=== PATIENT | female | born 1995 | race Caucasian/White ===

== ENCOUNTER 2018-06-02 02:49 | Inpatient (IN) | payer OTHER ==
[2018-06-02] MEDS ORDERED: Lidocaine 1% 50 ML MDV INJECT ONE (03:20)
[2018-06-02] MEDS ORDERED: Sodium Chloride 0.9% 10 ML Syringe FLUSH PRN (03:20)
[2018-06-02] MEDS ORDERED: Nalbuphine 20 MG/ML 1 ML Syringe IVPUSH PRN (03:20)
[2018-06-02] MEDS ORDERED: Ondansetron 4 MG/2 ML SDV IVPUSH PRN ×2 (03:20→04:41)
[2018-06-02] MEDS ORDERED: Oxytocin/Lactated Ringers 10 UNIT/1,000 ML BAG IV SCH (03:30)
--- NOTE | 2018-06-02 04:15 | PCM.LDHP ---
L&D History of Present Illness - General Date of Service: 06/02/18 Admit Problem/Dx: Patient Status Order with Admit Dx/Problem 06/02/18 03:20 Patient Status [ADT] Routine Admission Diagnosis/Problem Admission Diagnosis/Problem Normal labor Source of Information: Patient History Limitations: Reports: No Limitations - History of Present Illness Introduction:: Patient is a 22 y/o at 40 1/7 wks who presents in labor. Contractions started a little before midnight. No LOF. No other concerns. - Related Data Allergies/Adverse Reactions: Allergies Allergy/AdvReac Type Severity Reaction Status Date / Time No Known Allergies Allergy Verified 04/13/15 00:23 Home Medications: Home Meds Vit 90/Iron Fum/Folic [ Formula] 1 tab PO DAILY 04/13/15 [ History] Benzocaine/Menthol [Dermoplast Pain Relief [place]] 1 applic TOP ASDIRECTED PRN # 30 canister 04/14/15 [Rx] Docusate Sodium [Colace] 100 mg PO BID PRN #30 cap 04/14/15 [Rx] Ibuprofen [Motrin] 600 mg PO Q4H PRN #30 tablet 04/14/15 [Rx] Lanolin [Lansinoh HPA] 1 applic TOP ASDIRECTED PRN #30 crm 04/14/15 [Rx] Witch Kayli [Tucks] 1 pad TOP ASDIRECTED PRN #30 pad 04/14/15 [Rx] Past Medical History 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: , Spontaneous : 4 Para: 1 LMP (Approximate): - Past Surgical History HEENT Surgical History: Reports: Oral Surgery Other HEENT Surgeries/Procedures: wisdom teeth extraction Oncologic Surgical History: Reports: Other (See Below) Other Oncologic Surgeries/Procedures: lymph node removal Social & Family History - Tobacco Use Smoking Status *Q: Never Smoker - Alcohol Use Alcohol Use History: No - Recreational Drug Use Recreational Drug Use: No H&P Review of Systems - Review of Systems: Review Of Systems: See Below General: Reports: No Symptoms Pulmonary: Reports: No Symptoms Cardiovascular: Reports: No Symptoms Gastrointestinal: Reports: No Symptoms Genitourinary: Reports: No Symptoms Musculoskeletal: Reports: No Symptoms Psychiatric: Reports: No Symptoms Neurological: Reports: No Symptoms L&D Exam - Exam Exam: See Below - OB Specific Contraction Intensity: Moderate to Strong Movement: Active Heart Tones: Present Heart Tones per Min: 130 Heart Rate (FHR) Variability: Moderate (6-25 bmp) Presentation: Vertex - Waite Score Waite Score Cervix Position: Anterior Waite Score Consistency: Soft Waite Score Effacement: >80% Waite Score Dilation: > 5 cm Waite Score 's Station: -1 ,0 Waite Score Total: 12 - Exam General: Alert, Oriented, Cooperative Lungs: Clear to Auscultation, Normal Respiratory Effort Cardiovascular: Regular Rate, Regular Rhythm GI/Abdominal Exam: Soft, Non-Tender Genitourinary: Normal external exam Extremities: Normal Inspection Skin: Warm, Dry, Intact - Patient Data Lab Results Last 24 hrs: Laboratory Results - last 24 hr 06/02/18 Range/Units 03:40 WBC 16.76 H (3.98-10.04) K/mm3 RBC 4.30 (3.98-5.22) M/mm3 Hgb 12.8 (11.2-15.7) gm/L Hct 38.3 (34.1-44.9) % MCV 89.1 (79.4-94.8) fl MCH 29.8 (25.6-32.2) pg MCHC 33.4 (32.2-35.5) g/dl RDW Std Deviation 45.3 (36.4-46.3) fL Plt Count 234 (182-369) K/mm3 MPV 11.0 (9.4-12.3) fl Result Diagrams: 06/02/18 03:40 - Problem List (1) 40 weeks gestation of SNOMED Code(s): 84355269 ICD Code: Z3A.40 - 40 WEEKS GESTATION OF Status: Acute Current Visit: Yes (2) Normal labor SNOMED Code(s): 91591212 ICD Code: O80 - ENCOUNTER FOR FULL-TERM UNCOMPLICATED DELIVERY; Z37.9 - OUTCOME OF DELIVERY, UNSPECIFIED Status: Acute Current Visit: Yes Problem List Initiated/Reviewed/Updated: Yes Orders Last 24hrs: Active Orders 24 hr Category Date Time Status Patient Status [ADT] Routine ADT 06/02/18 03:20 Active Activity as Tolerated [RC] PFP Care 06/02/18 03:20 Active Communication Order [RC] ASDIRECTED Care 06/02/18 03:20 Active Heart Tones [RC] ASDIRECTED Care 06/02/18 03:21 Active Non Stress Test [RC] PER UNIT ROUTINE Care 06/02/18 03:20 Active Notify Provider [RC] PFP Care 06/02/18 03:20 Active Notify Provider [RC] PRN Care 06/02/18 03:20 Active Peripheral IV Care [RC] . DIRECTED Care 06/02/18 03:21 Active Vital Signs [RC] PER UNIT ROUTINE Care 06/02/18 03:20 Active Regular Diet [DIET] Diet 06/02/18 Breakfast Active RAPID PLASMA REAGIN,RPR [CHEM] Routine Lab 06/02/18 03:40 Received TYPE AND SCREEN [BBK] Stat Lab 06/02/18 03:40 Received Lactated Ringers [Ringers, Lactated] 1,000 ml Med 06/02/18 03:30 Active IV ASDIRECTED Nalbuphine [Nubain] Med 06/02/18 03:20 Active 10 mg IVPUSH Q2H PRN Ondansetron [Zofran] Med 06/02/18 03:20 Active 4 mg IVPUSH Q4H PRN Oxytocin/Lactated Ringers [Pitocin in LR 10 Units/1,000 Med 06/02/18 03:30 Active ML] 10 unit in 1,000 ml IV .CONTINUOUS Sodium Chloride 0.9% [Saline Flush] Med 06/02/18 03:20 Active 10 ml FLUSH ASDIRECTED PRN Electronic Heart Tones Ext w TOCO [WOMSER] Oth 06/02/18 03:20 Ordered Routine Electronic Heart Tones Internal [WOMSER] Per Unit Oth 06/02/18 03:20 Ordered Routine Peripheral IV Insertion Adult [OM.PC] Routine Oth 06/02/18 03:20 Ordered Resuscitation Status Routine Resus Stat 06/02/18 03:20 Ordered Medication Orders Lactated Ringer's (Ringers, Lactated) 1,000 mls @ 100 mls/hr IV ASDIRECTED JESSICA Oxytocin/Lactated Ringer's (Pitocin In Lr 10 Units/1,000 Ml) 10 unit in 1,000 mls @ 500 mls/hr IV .CONTINUOUS JESSICA Nalbuphine HCl (Nubain) 10 mg IVPUSH Q2H PRN PRN Reason: pain Ondansetron HCl (Zofran) 4 mg IVPUSH Q4H PRN PRN Reason: Nausea/Vomiting Sodium Chloride (Saline Flush) 10 ml FLUSH ASDIRECTED PRN PRN Reason: Keep Vein Open Assessment/Plan Comment:: 22 y/o at 40 1/7 wks who presents in labor * Labs * GBS negative, no need for antibiotics * Desires epidural * Anticipate
[2018-06-02] MEDS: Lactated Ringers 1,000 ML IV SCH ×3 (04:25→07:42)
[2018-06-02] MEDS ORDERED: diphenhydrAMINE 50 MG/ML SDV IVPUSH PRN (04:41)
[2018-06-02] MEDS ORDERED: fentaNYL 100 MCG/2 ML SDV EPIDUR PRN (04:41)
[2018-06-02] MEDS ORDERED: ePHEDrine 50 MG/ML SDV IVPUSH PRN (04:41)
[2018-06-02] MEDS ORDERED: Bupivacaine/fentaNYL/NS 100 ML Bag EPIDUR SCH (04:45)
--- NOTE | 2018-06-02 04:45 | PCM.PREANE ---
Preanesthetic Assessment - Procedure Proposed Procedure: MONIKA - Anesthesia/Transfusion/Family Hx Anesthesia History: Prior Anesthesia Without Reaction Family History of Anesthesia Reaction: No Transfusion History: No Prior Transfusion(s) - Review of Systems General: No Symptoms Pulmonary: No Symptoms Cardiovascular: No Symptoms Gastrointestinal: No Symptoms Neurological: No Symptoms Other: Reports: None - Physical Assessment NPO Status Date: 06/02/18 NPO Status Time: 01:30 Pulse: 97 O2 Sat by Pulse Oximetry: 75 Respiratory Rate: 20 Blood Pressure: 111/61 Temperature: 37.0 C Height: 1.65 m Weight: 86.183 kg ASA Class: 2 Mental Status: Alert & Oriented x3 Airway Class: Mallampati = 2 Dentition: Reports: Normal Dentition Thyro-Mental Finger Breadths: 3 Mouth Opening Finger Breadths: 3 ROM/Head Extension: Full Lungs: Clear to Auscultation, Normal Respiratory Effort Cardiovascular: Regular Rate, Regular Rhythm - Lab Values: Laboratory Last Values WBC 16.76 K/mm3 (3.98-10.04) H 06/02/18 03:40 RBC 4.30 M/mm3 (3.98-5.22) 06/02/18 03:40 Hgb 12.8 gm/L (11.2-15.7) 06/02/18 03:40 Hct 38.3 % (34.1-44.9) 06/02/18 03:40 MCV 89.1 fl (79.4-94.8) 06/02/18 03:40 MCH 29.8 pg (25.6-32.2) 06/02/18 03:40 MCHC 33.4 g/dl (32.2-35.5) 06/02/18 03:40 RDW Std Deviation 45.3 fL (36.4-46.3) 06/02/18 03:40 Plt Count 234 K/mm3 (182-369) 06/02/18 03:40 MPV 11.0 fl (9.4-12.3) 06/02/18 03:40 Blood Type O NEGATIVE 06/02/18 03:40 Gel Antibody Screen Negative 06/02/18 03:40 - Allergies Allergies/Adverse Reactions: Allergies Allergy/AdvReac Type Severity Reaction Status Date / Time No Known Allergies Allergy Verified 04/13/15 00:23 - Blood Blood Available: No Product(s) Available: None - Anesthesia Plan Pre-Op Medication Ordered: None - Acknowledgements Anesthesia Type Planned: Epidural Pt an Appropriate Candidate for the Planned Anesthesia: Yes Alternatives and Risks of Anesthesia Discussed w Pt/Guardian: Yes Pt/Guardian Understands and Agrees with Anesthesia Plan: Yes PreAnesthesia Questionnaire - Past Surgical History Other HEENT Surgeries/Procedures: wisdom teeth extraction Other Oncologic Surgeries/Procedures: lymph node removal - SUBSTANCE USE Smoking Status *Q: Never Smoker Second Hand Smoke Exposure: No Recreational Drug Use History: No - HOME MEDS Home Medications: Home Meds Vit 90/Iron Fum/Folic [ Formula] 1 tab PO DAILY 04/13/15 [ History] Benzocaine/Menthol [Dermoplast Pain Relief [place]] 1 applic TOP ASDIRECTED PRN # 30 canister 04/14/15 [Rx] Docusate Sodium [Colace] 100 mg PO BID PRN #30 cap 04/14/15 [Rx] Ibuprofen [Motrin] 600 mg PO Q4H PRN #30 tablet 04/14/15 [Rx] Lanolin [Lansinoh HPA] 1 applic TOP ASDIRECTED PRN #30 crm 04/14/15 [Rx] Witch Kayli [Tucks] 1 pad TOP ASDIRECTED PRN #30 pad 04/14/15 [Rx] - CURRENT (IN HOUSE) MEDS Current Meds: Current Medications Lactated Ringer's (Ringers, Lactated) 1,000 mls @ 100 mls/hr IV ASDIRECTED JESSICA Oxytocin/Lactated Ringer's (Pitocin In Lr 10 Units/1,000 Ml) 10 unit in 1,000 mls @ 500 mls/hr IV .CONTINUOUS JESSICA Nalbuphine HCl (Nubain) 10 mg IVPUSH Q2H PRN PRN Reason: pain Ondansetron HCl (Zofran) 4 mg IVPUSH Q4H PRN PRN Reason: Nausea/Vomiting Sodium Chloride (Saline Flush) 10 ml FLUSH ASDIRECTED PRN PRN Reason: Keep Vein Open Discontinued Medications Lidocaine HCl (Xylocaine 1%) 20 ml INJECT ONETIME ONE Stop: 06/02/18 03:21
--- NOTE | 2018-06-02 09:04 | PCM.DEL ---
L & D Note - General Info Date of Service: 06/02/18 - Delivery Note Labor: Spontaneous Delivery Outcome: Livebirth Delivery Method: Spontaneous Vaginal Delivery-Single Delivery Mode: Vacuum Extraction Presentation: Left Occiput Anterior (CYDNEY) Nuchal Cord: None Anesthesia Type: Epidural Amniotic Fluid Description: Clear Episiotomy Type: None Laceration: 2nd Degree, Perineal Suture type: Vicryl Suture size: 2-0 Placenta: Intact, Spontaneous Cord: 3 Vessels Estimated Blood Loss: 300 Resuscitation Needed: Yes : Bulb Syringe, Stimulated, Warmed, [place] Used, Warmer Used Score 1 min: 8 Score 5 min: 9 Delivery Comments (Free Text/Narrative):: Patient found to be complete and began pushing. With maternal pushing effort intermittent bradycardia down to the 60's were noted. At end of pushing effort a longer deceleration was noted. station +3 at this time. Given bradycardia, the decision was made to proceed with vacuum assisted vaginal delivery. The mushroom cup was placed without difficulty with care to avoid the vaginal side spaulding. Subsequent vacuum assisted vaginal delivery with pushing. Total pressure applied 550 mm Hg over 60 seconds. Total pop offs 0. Suction was removed following delivery of the head. No nuchal cord. head did not immediately deliver with downward traction. Suprapubic pressure applied and deep Fabienne down with delivery of anterior shoulder within 20 seconds. Baby placed on maternal abdomen. The umbilical cord was clamped and cut and the was then taken to the warmer. Inspection of the perineum following delivery with a 2nd degree laceration noted. This was repaired with a 2-0 vicryl in the typical fashion. Vacuum Extractor Progress Note - Alternative Labor Strategies Considered Alternative Labor Strategies Considered:: Reports: Yes Strategies Considered:: Reports: Contraction Intensity Adequate, Position Changes Used to Facilitate Rotation & Descent, Empty Bladder Indications Considered:: Reports: Yes Indications:: Reports: Suspicion of Immediate or Potential Compromise Time Out:: Reports: Yes - Patient Prepared Patient Prepared:: Reports: Yes Informed Consent:: Reports: Verbal Risks: Reports: Yes Risks Include:: Reports: Laceration, Shoulder Dystocia, Maternal Injury Anesthesia/Analgesia Adequate:: Reports: Yes - Probability of Success High Probability of Success:: Reports: Yes Weight Estimated:: Reports: AGA Patient Diabetic:: Reports: No Pelvis Adequate:: Reports: Yes Asynclitic:: Reports: No - Application Time Maximum Application Time & Number of Pop-Offs Predetermined:: Reports: Yes Maximum Pressure Maintained in [place] (cm Hg):: 550 Total Application Time (min): *max=20min: 1 Type of Vacuum Used:: Reports: Cup: Mushroom type Vacuum Extraction: Successful - Exit Strategy Exit strategy available:: Reports: Yes and resuscitation teams readily available:: Reports: Yes - General Info Date of Service: 06/02/18 - Patient Data Vitals - Most Recent: Last Vital Signs Temp 37.0 C 06/02/18 04:44 Pulse 97 06/02/18 04:44 Resp 20 06/02/18 04:44 BP 111/61 06/02/18 04:44 Pulse Ox 75 L 06/02/18 04:44 Weight - Most Recent: 86.183 kg I&O - Last 24 Hours: Intake & Output 06/01/18 06/02/18 06/02/18 22:59 06:59 14:59 Intake Total 1999 Balance 1999 Lab Results Last 24 Hours: Laboratory Results - last 24 hr 06/02/18 06/02/18 Range/Units 03:40 03:40 WBC 16.76 H (3.98-10.04) K/mm3 RBC 4.30 (3.98-5.22) M/mm3 Hgb 12.8 (11.2-15.7) gm/L Hct 38.3 (34.1-44.9) % MCV 89.1 (79.4-94.8) fl MCH 29.8 (25.6-32.2) pg MCHC 33.4 (32.2-35.5) g/dl RDW Std Deviation 45.3 (36.4-46.3) fL Plt Count 234 (182-369) K/mm3 MPV 11.0 (9.4-12.3) fl Blood Type O NEGATIVE Gel Antibody Screen Negative Med Orders - Current: Current Medications Diphenhydramine HCl (Benadryl) 25 mg IVPUSH Q6H PRN PRN Reason: Pruritis Ephedrine Sulfate (Ephedrine Sulfate) 5 mg IVPUSH ASDIRECTED PRN PRN Reason: Hypotension Fentanyl (Sublimaze) 100 mcg EPIDUR Q3H PRN PRN Reason: Pain Last Admin: 06/02/18 05:20 Dose: 100 mcg Fentanyl/Bupivacaine HCl (Fentanyl/Bupivacaine/Ns 2 Mcg-0.125% 100 Ml) 100 ml EPIDUR ASDIRECTED [facility] Last Admin: 06/02/18 05:21 Dose: 100 ml Lactated Ringer's (Ringers, Lactated) 1,000 mls @ 100 mls/hr IV ASDIRECTED [facility] Last Admin: 06/02/18 07:42 Dose: 100 mls/hr Oxytocin/Lactated Ringer's (Pitocin In Lr 10 Units/1,000 Ml) 10 unit in 1,000 mls @ 500 mls/hr IV .CONTINUOUS [facility] Last Admin: 06/02/18 07:46 Dose: 500 mls/hr Nalbuphine HCl (Nubain) 10 mg IVPUSH Q2H PRN PRN Reason: pain Ondansetron HCl (Zofran) 4 mg IVPUSH Q4H PRN PRN Reason: Nausea/Vomiting Ondansetron HCl (Zofran) 4 mg IVPUSH ONETIME PRN PRN Reason: Nausea/Vomiting Sodium Chloride (Saline Flush) 10 ml FLUSH ASDIRECTED PRN PRN Reason: Keep Vein Open Discontinued Medications Lidocaine HCl (Xylocaine 1%) 20 ml INJECT ONETIME ONE Stop: 06/02/18 03:21 - Problem List & Annotations (1) 40 weeks gestation of SNOMED Code(s): 31495640 Code(s): Z3A.40 - 40 WEEKS GESTATION OF Status: Acute Current Visit: Yes (2) Normal labor SNOMED Code(s): 78605262 Code(s): O80 - ENCOUNTER FOR FULL-TERM UNCOMPLICATED DELIVERY; Z37.9 - OUTCOME OF DELIVERY, UNSPECIFIED Status: Acute Current Visit: Yes (3) bradycardia SNOMED Code(s): 699279894 Code(s): ADU7450 - Status: Acute Current Visit: Yes (4) Vacuum extraction, delivered, current hospitalization SNOMED Code(s): 731528879 Code(s): O66.5 - ATTEMPTED APPLICATION OF VACUUM EXTRACTOR AND FORCEPS Status: Acute Current Visit: Yes - Problem List Review Problem List Initiated/Reviewed/Updated: Yes - My Orders Last 24 Hours: My Active Orders 06/02/18 03:20 Patient Status [ADT] Routine Activity as Tolerated [RC] PFP Communication Order [RC] ASDIRECTED Notify Provider [RC] PFP Notify Provider [RC] PRN Vital Signs [RC] PER UNIT ROUTINE Nalbuphine [Nubain] 10 mg IVPUSH Q2H PRN Ondansetron [Zofran] 4 mg IVPUSH Q4H PRN Sodium Chloride 0.9% [Saline Flush] 10 ml FLUSH ASDIRECTED PRN Electronic Heart Tones Ext w TOCO [WOMSER] Routine Electronic Heart Tones Internal [WOMSER] Per Unit Routine Peripheral IV Insertion Adult [OM.PC] Routine Resuscitation Status Routine 06/02/18 03:21 Peripheral IV Care [RC] . DIRECTED 06/02/18 03:30 Lactated Ringers [Ringers, Lactated] 1,000 ml IV ASDIRECTED Oxytocin/Lactated Ringers [Pitocin in LR 10 Units/1,000 ML] 10 unit in 1,000 ml IV .CONTINUOUS 06/02/18 03:40 PATIENT RETYPE [BBK] Stat RAPID PLASMA REAGIN,RPR [CHEM] Routine TYPE AND SCREEN [BBK] Stat 06/02/18 Breakfast Regular Diet [DIET] - Assessment Assessment:: 22 y/o G4 now P2022 PPD#0 from [facility] at 40 1/7 wks - Plan Plan:: [facility] * Routine cares * Pumping / breast feeding * Will assess blood type * Discharge home in 1-2 days
[2018-06-02] MEDS ORDERED: Benzocaine/Menthol 20%-0.5% Spray 56 GM Canister TOP PRN (09:45)
[2018-06-02] MEDS ORDERED: Acetaminophen 325 MG Tab PO PRN (09:45)
[2018-06-02] MEDS ORDERED: Docusate Sodium 100 MG Cap PO PRN (09:45)
[2018-06-02] MEDS ORDERED: Lanolin 100% Cream 7 GM Tube TOP PRN (09:45)
[2018-06-02] MEDS ORDERED: Witch Hazel Medicated Pads 100/Jar TOP PRN (09:45)
[2018-06-02] MEDS: Ibuprofen 600 MG Tab PO PRN ×2 (12:31→21:54)
[2018-06-02] MEDS ORDERED: Bupivacaine 0.25% 10 ML SDV ONE (22:00)
--- NOTE | 2018-06-03 03:41 | PCM.PNPP ---
- General Info Date of Service: 06/03/18 Functional Status: Reports: Pain Controlled, Tolerating Diet, Ambulating, Urinating - Review of Systems General: Reports: No Symptoms Pulmonary: Reports: No Symptoms Cardiovascular: Reports: No Symptoms Gastrointestinal: Reports: No Symptoms Genitourinary: Reports: No Symptoms Musculoskeletal: Reports: No Symptoms - Patient Data Vital Signs - Most Recent: Last Vital Signs Temp 36.6 C 06/02/18 21:00 Pulse 82 06/02/18 21:00 Resp 16 06/02/18 21:00 BP 125/65 06/02/18 21:00 Pulse Ox 99 06/02/18 21:00 Weight - Most Recent: 86.183 kg I&O - Last 24 Hours: Intake & Output 06/02/18 06/02/18 06/03/18 14:59 22:59 06:59 Intake Total 2000 380 Output Total 150 Balance 1850 380 Lab Results - Last 24 Hours: Laboratory Results - last 24 hr 06/02/18 06/02/18 Range/Units 03:40 03:40 WBC 16.76 H (3.98-10.04) K/mm3 RBC 4.30 (3.98-5.22) M/mm3 Hgb 12.8 (11.2-15.7) gm/L Hct 38.3 (34.1-44.9) % MCV 89.1 (79.4-94.8) fl MCH 29.8 (25.6-32.2) pg MCHC 33.4 (32.2-35.5) g/dl RDW Std Deviation 45.3 (36.4-46.3) fL Plt Count 234 (182-369) K/mm3 MPV 11.0 (9.4-12.3) fl Blood Type O POSITIVE Gel Antibody Screen Negative Med Orders - Current: Current Medications Acetaminophen (Tylenol) 650 mg PO Q4H PRN PRN Reason: mild pain or fever Benzocaine/Menthol (Dermoplast Pain Relief [place]) 0 gm TOP ASDIRECTED PRN PRN Reason: Perineal Comfort Measure Last Admin: 06/02/18 10:21 Dose: 1 can Docusate Sodium (Colace) 100 mg PO BID PRN PRN Reason: Constipation Last Admin: 06/02/18 21:54 Dose: 100 mg Emollient Ointment (Lansinoh Hpa) 0 gm TOP ASDIRECTED PRN PRN Reason: Sore Nipples Last Admin: 06/02/18 10:20 Dose: 1 tube Ibuprofen (Motrin) 600 mg PO Q6H PRN PRN Reason: Mild pain or fever Last Admin: 06/02/18 21:54 Dose: 600 mg Witch Kayli (Tucks) 1 pad TOP ASDIRECTED PRN PRN Reason: Hemorrhoid pain Last Admin: 06/02/18 10:20 Dose: 1 jar Discontinued Medications Diphenhydramine HCl (Benadryl) 25 mg IVPUSH Q6H PRN PRN Reason: Pruritis Ephedrine Sulfate (Ephedrine Sulfate) 5 mg IVPUSH ASDIRECTED PRN PRN Reason: Hypotension Fentanyl (Sublimaze) 100 mcg EPIDUR Q3H PRN PRN Reason: Pain Last Admin: 06/02/18 05:20 Dose: 100 mcg Fentanyl/Bupivacaine HCl (Fentanyl/Bupivacaine/Ns 2 Mcg-0.125% 100 Ml) 100 ml EPIDUR ASDIRECTED JESSICA Last Admin: 06/02/18 05:21 Dose: 100 ml Lactated Ringer's (Ringers, Lactated) 1,000 mls @ 100 mls/hr IV ASDIRECTED JESSICA Last Admin: 06/02/18 07:42 Dose: 100 mls/hr Oxytocin/Lactated Ringer's (Pitocin In Lr 10 Units/1,000 Ml) 10 unit in 1,000 mls @ 500 mls/hr IV .CONTINUOUS JESSICA Last Admin: 06/02/18 07:46 Dose: 500 mls/hr Lidocaine HCl (Xylocaine 1%) 20 ml INJECT ONETIME ONE Stop: 06/02/18 03:21 Last Admin: 06/02/18 13:16 Dose: Not Given Nalbuphine HCl (Nubain) 10 mg IVPUSH Q2H PRN PRN Reason: pain Ondansetron HCl (Zofran) 4 mg IVPUSH Q4H PRN PRN Reason: Nausea/Vomiting Ondansetron HCl (Zofran) 4 mg IVPUSH ONETIME PRN PRN Reason: Nausea/Vomiting Sodium Chloride (Saline Flush) 10 ml FLUSH ASDIRECTED PRN PRN Reason: Keep Vein Open - Infant Interaction Disposition, : in Room with Family Infant Interaction: Holding Infant Feeding: Attempted ; Nursed Fair/Poor, Difficulty with Latch -on, Other (see below) (Pumping) Support Person: - Recovery Exam Fundal Tone: Firm Fundal Level: 1 Fingerbreadths Below Umbilicus Fundal Placement: Midline Lochia Amount: Small Lochia Color: Rubra/Red Bladder Status: Voiding - Exam General: Alert, Oriented, Cooperative GI/Abdominal Exam: Soft, Non-Tender Extremities: Normal Inspection Skin: Warm, Dry, Intact - Problem List & Annotations (1) 40 weeks gestation of SNOMED Code(s): 11139727 Code(s): Z3A.40 - 40 WEEKS GESTATION OF Status: Acute Current Visit: Yes (2) Normal labor SNOMED Code(s): 24624580 Code(s): O80 - ENCOUNTER FOR FULL-TERM UNCOMPLICATED DELIVERY; Z37.9 - OUTCOME OF DELIVERY, UNSPECIFIED Status: Acute Current Visit: Yes (3) bradycardia SNOMED Code(s): 663721904 Code(s): MMZ3873 - Status: Acute Current Visit: Yes (4) Vacuum extraction, delivered, current hospitalization SNOMED Code(s): 523363335 Code(s): O66.5 - ATTEMPTED APPLICATION OF VACUUM EXTRACTOR AND FORCEPS Status: Acute Current Visit: Yes - Problem List Review Problem List Initiated/Reviewed/Updated: Yes - My Orders Last 24 Hours: My Active Orders 06/02/18 03:20 Resuscitation Status Routine 06/02/18 03:21 Peripheral IV Care [RC] . DIRECTED 06/02/18 03:40 RAPID PLASMA REAGIN,RPR [CHEM] Routine 06/02/18 09:45 Activity as Tolerated [RC] PER UNIT ROUTINE Vital Signs [RC] 03,09,15,21 Acetaminophen [Tylenol] 650 mg PO Q4H PRN Benzocaine/Menthol [Dermoplast Pain Relief [place]] See Dose Instructions TOP ASDIRECTED PRN Docusate Sodium [Colace] 100 mg PO BID PRN Ibuprofen [Motrin] 600 mg PO Q6H PRN Lanolin [Lansinoh HPA] See Dose Instructions TOP ASDIRECTED PRN Witch Kayli [Tucks] 1 pad TOP ASDIRECTED PRN Assess Lochia [WOMSER] Per Unit Routine Assess Uterine Involution [WOMSER] Per Unit Routine Breast Pump [WOMSER] Per Unit Routine Heat Therapy [OM.PC] PRN Ice Therapy [OM.PC] Per Unit Routine Perineal Care [OM.PC] Per Unit Routine Peripheral IV Discontinue [OM.PC] Routine Sitz Bath [OM.PC] Per Unit Routine 06/02/18 Breakfast Regular Diet [DIET] 06/03/18 09:45 Heat Therapy [OM.PC] PRN - Assessment Assessment:: 22 y/o G4 now P2022 PPD#1 from [facility] at 40 1/7 wks - [facility] * Routine cares * Pumping / breast feeding * Discharge home today
--- NOTE | 2018-06-03 03:44 | PCM.DCSUM1 ---
Discharge Summary - Discharge Data Discharge Date: 06/03/18 Discharge Disposition: Home, Self-Care 01 Condition: Good - Discharge Diagnosis/Problem(s) (1) 40 weeks gestation of SNOMED Code(s): 43388096 ICD Code: Z3A.40 - 40 WEEKS GESTATION OF Status: Acute Current Visit: Yes (2) Normal labor SNOMED Code(s): 41530562 ICD Code: O80 - ENCOUNTER FOR FULL-TERM UNCOMPLICATED DELIVERY; Z37.9 - OUTCOME OF DELIVERY, UNSPECIFIED Status: Acute Current Visit: Yes (3) bradycardia SNOMED Code(s): 621686168 ICD Code: [id number] - Status: Acute Current Visit: Yes (4) Vacuum extraction, delivered, current hospitalization SNOMED Code(s): 112313980 ICD Code: O66.5 - ATTEMPTED APPLICATION OF VACUUM EXTRACTOR AND [employer]CE[employer] Status: Acute Current Visit: Yes - Patient Summary/Data Complications: None Consults: None Recommended Follow-up Testing/Procedures: Follow up in 3-6 weeks for check Hospital Course: 22 y/o at 40 1/7 wks presented in labor. She progressed well to complete dilation. She did require VAVD due to recurrent variables into the 60' s. See delivery note. she did well and was discharged home on PPD# 1 - Patient Instructions Diet: Regular Diet as Tolerated Activity: As Tolerated Activity, Other: Pelvic Rest for 6 weeks Driving: May Drive Today Showering/Bathing: May Shower Showering/Bathing, Other: May Bathe Notify Provider of: Fever, Increased Pain, Swelling and Redness, Drainage, Nausea and/or Vomiting - Discharge Plan *PRESCRIPTION DRUG MONITORING PROGRAM REVIEWED*: Not Applicable *COPY OF PRESCRIPTION DRUG MONITORING REPORT IN PATIENT LY: Not Applicable Home Medications: Home Meds Vit 90/Iron Fum/Folic [ Formula] 1 tab PO DAILY 04/13/15 [ History] Docusate Sodium [Colace] 100 mg PO BID PRN #30 cap 04/14/15 [Rx] Ibuprofen [Motrin] 600 mg PO Q4H PRN #30 tablet 04/14/15 [Rx] Dakotaaugusto Kayli [Tucks] 1 pad TOP ASDIRECTED PRN #30 pad 04/14/15 [Rx] Referrals: Chelsi Mishra MD [Primary Care Provider] - (3-6 weeks for check ) - Discharge Summary/Plan Comment DC Time >30 min.: No - Patient Data Vitals - Most Recent: Last Vital Signs Temp 36.6 C 06/02/18 21:00 Pulse 82 06/02/18 21:00 Resp 16 06/02/18 21:00 BP 125/65 06/02/18 21:00 Pulse Ox 99 06/02/18 21:00 Weight - Most Recent: 86.183 kg I&O - Last 24 hours: Intake & Output 06/02/18 06/02/18 06/03/18 14:59 22:59 06:59 Intake Total 2000 380 Output Total 150 Balance 1850 380 Lab Results - Last 24 hrs: Laboratory Results - last 24 hr 06/02/18 06/02/18 Range/Units 03:40 03:40 WBC 16.76 H (3.98-10.04) K/mm3 RBC 4.30 (3.98-5.22) M/mm3 Hgb 12.8 (11.2-15.7) gm/L Hct 38.3 (34.1-44.9) % MCV 89.1 (79.4-94.8) fl MCH 29.8 (25.6-32.2) pg MCHC 33.4 (32.2-35.5) g/dl RDW Std Deviation 45.3 (36.4-46.3) fL Plt Count 234 (182-369) K/mm3 MPV 11.0 (9.4-12.3) fl Blood Type O POSITIVE Gel Antibody Screen Negative Med Orders - Current: Current Medications Acetaminophen (Tylenol) 650 mg PO Q4H PRN PRN Reason: mild pain or fever Benzocaine/Menthol (Dermoplast Pain Relief [place]) 0 gm TOP ASDIRECTED PRN PRN Reason: Perineal Comfort Measure Last Admin: 06/02/18 10:21 Dose: 1 can Docusate Sodium (Colace) 100 mg PO BID PRN PRN Reason: Constipation Last Admin: 06/02/18 21:54 Dose: 100 mg Emollient Ointment (Lansinoh Hpa) 0 gm TOP ASDIRECTED PRN PRN Reason: Sore Nipples Last Admin: 06/02/18 10:20 Dose: 1 tube Ibuprofen (Motrin) 600 mg PO Q6H PRN PRN Reason: Mild pain or fever Last Admin: 06/02/18 21:54 Dose: 600 mg Witch Kayli (Tucks) 1 pad TOP ASDIRECTED PRN PRN Reason: Hemorrhoid pain Last Admin: 06/02/18 10:20 Dose: 1 jar Discontinued Medications Diphenhydramine HCl (Benadryl) 25 mg IVPUSH Q6H PRN PRN Reason: Pruritis Ephedrine Sulfate (Ephedrine Sulfate) 5 mg IVPUSH ASDIRECTED PRN PRN Reason: Hypotension Fentanyl (Sublimaze) 100 mcg EPIDUR Q3H PRN PRN Reason: Pain Last Admin: 06/02/18 05:20 Dose: 100 mcg Fentanyl/Bupivacaine HCl (Fentanyl/Bupivacaine/Ns 2 Mcg-0.125% 100 Ml) 100 ml EPIDUR ASDIRECTED JESSICA Last Admin: 06/02/18 05:21 Dose: 100 ml Lactated Ringer's (Ringers, Lactated) 1,000 mls @ 100 mls/hr IV ASDIRECTED JESSICA Last Admin: 06/02/18 07:42 Dose: 100 mls/hr Oxytocin/Lactated Ringer's (Pitocin In Lr 10 Units/1,000 Ml) 10 unit in 1,000 mls @ 500 mls/hr IV .CONTINUOUS JESSICA Last Admin: 06/02/18 07:46 Dose: 500 mls/hr Lidocaine HCl (Xylocaine 1%) 20 ml INJECT ONETIME ONE Stop: 06/02/18 03:21 Last Admin: 06/02/18 13:16 Dose: Not Given Nalbuphine HCl (Nubain) 10 mg IVPUSH Q2H PRN PRN Reason: pain Ondansetron HCl (Zofran) 4 mg IVPUSH Q4H PRN PRN Reason: Nausea/Vomiting Ondansetron HCl (Zofran) 4 mg IVPUSH ONETIME PRN PRN Reason: Nausea/Vomiting Sodium Chloride (Saline Flush) 10 ml FLUSH ASDIRECTED PRN PRN Reason: Keep Vein Open
[2018-06-03 10:45] VITALS: BP 111/58
[2018-06-03] MEDS: Ibuprofen 600 MG Tab PO PRN (10:55)
--- NOTE | 2018-06-03 10:57 | PCM48HPAN ---
Post Anesthesia Note - EVALUATION WITHIN 48HRS OF ANESTHETIC Vital Signs in Normal Range: Yes Patient Participated in Evaluation: Yes Respiratory Function Stable: Yes Airway Patent: Yes Cardiovascular Function Stable: Yes Hydration Status Stable: Yes Pain Control Satisfactory: Yes Nausea and Vomiting Control Satisfactory: Yes Mental Status Recovered: Yes
== END 2018-06-03 14:30 | disposition home or self-care (01) | DRG 807 ==
LOC: JD.OBCHECK 02:49 → JD.OB 02:59 → JD.OBCHECK 03:24 → JD.OB 03:26 → UNDOADMOB 03:26 → OBSVTOIN 08:30 → JD.OB 08:31
PROVIDERS: ADMIT Obstetrics & Gynecology; ATTEND Obstetrics & Gynecology
PROC: 10D07Z6 Extraction of Products of Conception, Vacuum, Via Natural or Artificial Opening (ICD-10-PCS; principal; 2018-06-02)
PROC: 0KQM0ZZ Repair Perineum Muscle, Open Approach (ICD-10-PCS; 2018-06-02)
PROC: 00HU33Z Insertion of Infusion Device into Spinal Canal, Percutaneous Approach (ICD-10-PCS; 2018-06-02)
PROC: 3E0R3BZ Introduction of Anesthetic Agent into Spinal Canal, Percutaneous Approach (ICD-10-PCS; 2018-06-02)
DX: O48.0 Post-term pregnancy (principal); Z37.0 Single live birth; Z3A.40 40 weeks gestation of pregnancy; O76 Abnormality in fetal heart rate and rhythm complicating labor and delivery; O70.1 Second degree perineal laceration during delivery
CPT/HCPCS: 36415; 51701; 59025; 59300; 59409; 85027; 86592; 86850; 86900; 86901; A9270-GY; J2590; J3010; J3490; J7120